=== PATIENT | male | born 1960 | race Native Hawaiian/Other Pacific Islander ===

== ENCOUNTER 2016-08-07 19:30 | Emergency (ER) | payer OTHER ==
[~2016-08-07] VITALS: Ht 182.9 cm; Wt 81.6 kg
== END 2016-08-07 21:57 | disposition home or self-care (01) ==
LOC: ED 19:30
DX: N23 Unspecified renal colic (principal); M54.5 Low back pain; R31.0 Gross hematuria
CPT/HCPCS: 81000; 99284